=== PATIENT | male | born 1935 | race Two or more races ===

== ENCOUNTER 2022-10-20 10:54 | Inpatient (IN) | payer OTHER ==
[~2022-10-20] VITALS: Ht 177.8 cm; Wt 69.3 kg
[~2022-10-20 10:54] MED LIST: LOSA-69 PO; TAMS0.4C36 PO
[2022-10-21] VITALS (8 sets, daily range): BP systolic 118–135; BP diastolic 51–80
[2022-10-21] MEDS ORDERED: DOCUSATE SOD 100 MG CAP PO PRN (01:00)
[2022-10-21] MEDS ORDERED: ONDANSETRON HCL 4 MG/2 ML VIAL IV PRN (01:00)
[2022-10-21] MEDS ORDERED: ALBUTEROL SULF 2.5 MG/0.5ML(0.5%) NEB SOLN NEB PRN (01:00)
[2022-10-21] MEDS ORDERED: HYDROcodone-ACET 5/325MG TAB PO PRN (01:00)
[2022-10-21] MEDS ORDERED: IPRATROPIUM BROM 0.5 MG/2.5ML INH SOL NEB PRN (01:00)
[2022-10-21] MEDS ORDERED: MORPHINE SULFATE INJ 2 MG/ml SYRG IV PRN (01:00)
[2022-10-21] MEDS ORDERED: NITROGLYCERIN 0.4 MG SL TAB SL PRN (01:00)
[2022-10-21 01:27] LABS: Basophils # (auto) 0.1 10 ^3/uL (0-0.2); Basophils % (auto) 1.2 % (0.0-2.0); Eosinophils # (auto) 0 10 ^3/uL (0-0.8); Hematocrit 38.8 % (41.0-53.0); Hemoglobin 13.5 g/dL (13.5-17.5); Lymphocytes # (auto) 0.7 10 ^3/uL (0.4-5.4); Mean Corpuscular Hemoglobin 33.9 pg (28.0-32.0); Mean Corpuscular Hgb Conc. 34.9 g/dL (32.0-36.0); Mean Corpuscular Volume 97.1 fL (80.0-100.0); Monocytes # (auto) 0.5 10 ^3/uL (0-1.3); Monocytes % (auto) 4.3 % (0.0-12.0); Neutrophils # (auto) 10.9 10 ^3/uL (1.6-8.6); Neutrophils % (auto) 88.5 % (37.0-80.0); Red Blood Cells 3.99 10^6/uL (4.5-5.90); Red Cell Distribution Width 13.7 % (11.8-14.3); White Blood Cell 12.3 10^3/uL (4.4-10.8)
[2022-10-21] MEDS ORDERED: cefTRIAXone 1GM/50ML D5W 50 ML IV SCH (01:30)
[2022-10-21 01:45] LABS: BUN/Creatinine Ratio 19.3
[2022-10-21 01:46] LABS: Calcium 8.6 mg/dL (8.5-10.1)
[2022-10-21] MEDS ORDERED: AZITHROMYCIN 500MG/ 250ML 250 ML IV SCH (02:00)
[2022-10-21] MEDS: PANTOPRAZOLE 40 MG/10 ML VIAL INJ IV SCH (10:16)
[2022-10-21] MEDS: cefTRIAXone 1GM/50ML D5W 50 ML IV SCH (20:48)
[2022-10-21] MEDS: AZITHROMYCIN 500MG/ 250ML 250 ML IV SCH (21:56)
[2022-10-22] MEDS: ACETAMINOPHEN 325 MG TAB PO PRN (00:31)
[2022-10-22 05:00] VITALS: BP 112/56
[2022-10-22] MEDS ORDERED: PRAV20TA3 PO (08:26)
[2022-10-22] MEDS ORDERED: FIN5T PO (08:26)
[2022-10-22] MEDS ORDERED: FLUT1INH6 INH (08:26)
[2022-10-22 08:42] VITALS: BP 124/70
[2022-10-22] MEDS: PANTOPRAZOLE 40 MG/10 ML VIAL INJ IV SCH (10:45)
[2022-10-22 13:00] VITALS: BP 133/62
[2022-10-22 17:00] VITALS: BP 119/60
[2022-10-22] MEDS ORDERED: REMDESIVIR PER PHARMACY 0 ML IV SCH (18:00)
[2022-10-22] MEDS: ZINC SULFATE 220mg CAP or TAB PO SCH (18:45)
[2022-10-22] MEDS: DexAMETHasone SOD PHOS 10MG/1ML VIAL INJ IV SCH (18:45)
[2022-10-22] MEDS: CHOLECALCIFEROL (VITD3) 2,000 UNIT CAP/TAB PO SCH (18:45)
[2022-10-22] MEDS ORDERED: REMDESIVIR 200 MG in NS 210ml LOADING DOSE ADULT IV ONE (19:00)
[2022-10-22] MEDS: cefTRIAXone 1GM/50ML D5W 50 ML IV SCH (20:54)
[2022-10-22 22:00] VITALS: BP 120/63
[2022-10-22] MEDS: AZITHROMYCIN 500MG/ 250ML 250 ML IV SCH (22:35)
[2022-10-22] MEDS: LOSARTAN POTASSIUM 50 MG TAB PO SCH (22:35)
[2022-10-22] MEDS: ASCORBIC ACID 500 MG TAB PO SCH (22:36)
[2022-10-23] VITALS (9 sets, daily range): BP systolic 96–124; BP diastolic 55–74
[2022-10-23 07:19] LABS: Albumin 2.1 g/dL (3.4-5.0); BUN/Creatinine Ratio 30.8; Bilirubin, Total 0.8 mg/dL (0.2-1.0); Calcium 8.3 mg/dL (8.5-10.1); Potassium 4.5 mmol/L (3.5-5.1); Total Protein 5.6 g/dL (6.4-8.2)
[2022-10-23] MEDS: ASCORBIC ACID 500 MG TAB PO SCH ×2 (09:56→22:27)
[2022-10-23] MEDS: PANTOPRAZOLE 40 MG/10 ML VIAL INJ IV SCH (09:56)
[2022-10-23] MEDS: CHOLECALCIFEROL (VITD3) 2,000 UNIT CAP/TAB PO SCH (09:57)
[2022-10-23] MEDS: DexAMETHasone SOD PHOS 10MG/1ML VIAL INJ IV SCH (09:58)
[2022-10-23] MEDS: ZINC SULFATE 220mg CAP or TAB PO SCH (09:58)
[2022-10-23] MEDS: REMDESIVIR 200 MG in NS 210ml LOADING DOSE ADULT IV ONE ×2 (09:59→10:57)
[2022-10-23] MEDS: LOSARTAN POTASSIUM 50 MG TAB PO SCH ×2 (10:00→22:28)
[2022-10-23] MEDS: FINASTERIDE 5 MG TAB PO SCH (10:01)
[2022-10-23] MEDS: PRAVASTATIN SODIUM 20 MG TAB PO SCH (10:01)
[2022-10-23] MEDS: TAMSULOSIN HYDROCHLORIDE 0.4 MG CAP PO SCH (10:05)
[2022-10-23] MEDS ORDERED: ALBUTEROL SULF 2.5 MG/0.5ML(0.5%) NEB SOLN NEB PRN (12:00)
[2022-10-23] MEDS: guaiFENesin 200 MG/10 ML UD GT PRN (13:30)
[2022-10-23] MEDS ORDERED: REMDESIVIR 100mg 100 MG in SODIUM CHL 0.9% 230 ML IV SCH (15:00)
[2022-10-23] MEDS: SODIUM CHLORIDE 0.9% 1,000 ML IV SCH (15:30)
[2022-10-23] MEDS ORDERED: ALBUTEROL SULF HFA 90MCG INH 200DOSE IN PRN (16:15)
[2022-10-23 20:59] LABS: Urine Bacteria NONE SEEN /hpf (None Seen); Urine Blood Negative /uL (Negative); Urine Hyaline Cast FEW /lpf (0 - 2); Urine Mucus FEW (None Seen); Urine Specific Gravity 1.021 (1.001-1.035); Urine WBC <1 /hpf (0 - 3)
[2022-10-23] MEDS: cefTRIAXone 1GM/50ML D5W 50 ML IV SCH (21:05)
[2022-10-23] MEDS: AZITHROMYCIN 500MG/ 250ML 250 ML IV SCH (22:27)
[2022-10-24] MEDS: SODIUM CHLORIDE 0.9% 1,000 ML IV SCH (04:19)
[2022-10-24 05:24] VITALS: BP 129/54
[2022-10-24 08:03] LABS: Albumin 1.9 g/dL (3.4-5.0); BUN/Creatinine Ratio 37.2; Bilirubin, Total 0.4 mg/dL (0.2-1.0); Calcium 8.2 mg/dL (8.5-10.1); Potassium 3.9 mmol/L (3.5-5.1); Total Protein 5.9 g/dL (6.4-8.2)
[2022-10-24 08:37] LABS: Folate (Folic Acid) 15.29 ng/mL (5.38-24)
[2022-10-24 08:44] VITALS: BP 113/58
[2022-10-24] MEDS ORDERED: GASTROGRAFIN 120 ML SOL ONE (09:00)
[2022-10-24] MEDS ORDERED: EZ-GAS II GRANULES (RADIOLOGY USE) PO ONE (09:01)
[2022-10-24] MEDS ORDERED: EZ PAQUE SUSP 12OZ BTL ONE (09:01)
[2022-10-24] MEDS: CHOLECALCIFEROL (VITD3) 2,000 UNIT CAP/TAB PO SCH (10:57)
[2022-10-24] MEDS: PANTOPRAZOLE 40 MG/10 ML VIAL INJ IV SCH (10:57)
[2022-10-24] MEDS: ZINC SULFATE 220mg CAP or TAB PO SCH (10:58)
[2022-10-24] MEDS: FINASTERIDE 5 MG TAB PO SCH (10:58)
[2022-10-24] MEDS: TAMSULOSIN HYDROCHLORIDE 0.4 MG CAP PO SCH (10:58)
[2022-10-24] MEDS: LOSARTAN POTASSIUM 50 MG TAB PO SCH ×2 (10:58→21:09)
[2022-10-24] MEDS: DexAMETHasone SOD PHOS 10MG/1ML VIAL INJ IV SCH (10:59)
[2022-10-24] MEDS: PRAVASTATIN SODIUM 20 MG TAB PO SCH (10:59)
[2022-10-24] MEDS: ASCORBIC ACID 500 MG TAB PO SCH ×2 (10:59→21:08)
[2022-10-24 13:00] VITALS: BP 125/63
[2022-10-24] MEDS: REMDESIVIR 100mg 100 MG in SODIUM CHL 0.9% 230 ML IV SCH (15:14)
[2022-10-24 17:00] VITALS: BP 120/71
[2022-10-24 19:50] VITALS: BP 131/68
[2022-10-24] MEDS: cefTRIAXone 1GM/50ML D5W 50 ML IV SCH (21:09)
[2022-10-24] MEDS: AZITHROMYCIN 500MG/ 250ML 250 ML IV SCH (21:09)
[2022-10-24 22:00] VITALS: BP 131/68
[2022-10-25] MEDS: SODIUM CHLORIDE 0.9% 1,000 ML IV SCH ×2 (00:20→17:00)
[2022-10-25] MEDS: ACETAMINOPHEN 325 MG TAB PO PRN (01:22)
[2022-10-25 05:00] VITALS: BP 138/67
[2022-10-25 08:19] LABS: Basophils # (auto) 0 10 ^3/uL (0-0.2); Basophils % (auto) 0.1 % (0.0-2.0); Eosinophils # (auto) 0 10 ^3/uL (0-0.8); Hematocrit 34.8 % (41.0-53.0); Hemoglobin 12.1 g/dL (13.5-17.5); Lymphocytes # (auto) 0.8 10 ^3/uL (0.4-5.4); Lymphocytes % (auto) 5.5 % (10.0-50.0); Mean Corpuscular Hemoglobin 32.7 pg (28.0-32.0); Mean Corpuscular Hgb Conc. 34.7 g/dL (32.0-36.0); Mean Corpuscular Volume 94.2 fL (80.0-100.0); Monocytes # (auto) 0.7 10 ^3/uL (0-1.3); Monocytes % (auto) 4.9 % (0.0-12.0); Neutrophils # (auto) 12.4 10 ^3/uL (1.6-8.6); Neutrophils % (auto) 89.5 % (37.0-80.0); Red Cell Distribution Width 13.4 % (11.8-14.3); White Blood Cell 13.8 10^3/uL (4.4-10.8)
[2022-10-25 08:26] LABS: Bilirubin, Total 0.4 mg/dL (0.2-1.0); Calcium 8.3 mg/dL (8.5-10.1); Potassium 4.3 mmol/L (3.5-5.1); Total Protein 5.8 g/dL (6.4-8.2)
[2022-10-25 08:53] VITALS: BP 130/67
[2022-10-25] MEDS: LOSARTAN POTASSIUM 50 MG TAB PO SCH ×3 (10:00→22:14)
[2022-10-25] MEDS: ZINC SULFATE 220mg CAP or TAB PO SCH ×2 (10:00→10:19)
[2022-10-25] MEDS: PRAVASTATIN SODIUM 20 MG TAB PO SCH ×2 (10:00→10:19)
[2022-10-25] MEDS: ASCORBIC ACID 500 MG TAB PO SCH ×3 (10:00→22:14)
[2022-10-25] MEDS: DexAMETHasone SOD PHOS 10MG/1ML VIAL INJ IV SCH ×2 (10:00→10:21)
[2022-10-25] MEDS: FINASTERIDE 5 MG TAB PO SCH ×2 (10:00→10:18)
[2022-10-25] MEDS: PANTOPRAZOLE 40 MG/10 ML VIAL INJ IV SCH ×2 (10:00→10:17)
[2022-10-25] MEDS: TAMSULOSIN HYDROCHLORIDE 0.4 MG CAP PO SCH ×2 (10:00→10:19)
[2022-10-25] MEDS: CHOLECALCIFEROL (VITD3) 2,000 UNIT CAP/TAB PO SCH ×2 (10:00→10:19)
[2022-10-25] MEDS: guaiFENesin 200 MG/10 ML UD GT PRN (10:19)
[2022-10-25 13:00] VITALS: BP 141/85
[2022-10-25] MEDS: REMDESIVIR 100mg 100 MG in SODIUM CHL 0.9% 230 ML IV SCH (15:00)
[2022-10-25 17:19] VITALS: BP 149/74
[2022-10-25] MEDS ORDERED: guaiFENesin 200 MG/10 ML UD PO PRN (19:45)
[2022-10-25] MEDS: cefTRIAXone 1GM/50ML D5W 50 ML IV SCH (20:46)
[2022-10-25 22:00] VITALS: BP 126/70
[2022-10-25] MEDS: AZITHROMYCIN 500MG/ 250ML 250 ML IV SCH (22:13)
[2022-10-26 05:00] VITALS: BP 110/51
[2022-10-26 06:44] LABS: Albumin 1.9 g/dL (3.4-5.0); Calcium 8.2 mg/dL (8.5-10.1); Potassium 3.9 mmol/L (3.5-5.1)
[2022-10-26 06:49] LABS: BUN/Creatinine Ratio 36.8; Bilirubin, Total 0.5 mg/dL (0.2-1.0); Total Protein 5.4 g/dL (6.4-8.2)
[2022-10-26 09:00] VITALS: BP 115/53
[2022-10-26] MEDS: SODIUM CHLORIDE 0.9% 1,000 ML IV SCH (09:40)
[2022-10-26] MEDS: PANTOPRAZOLE 40 MG/10 ML VIAL INJ IV SCH (10:24)
[2022-10-26] MEDS: CHOLECALCIFEROL (VITD3) 2,000 UNIT CAP/TAB PO SCH (10:24)
[2022-10-26] MEDS: PRAVASTATIN SODIUM 20 MG TAB PO SCH (10:24)
[2022-10-26] MEDS: DexAMETHasone SOD PHOS 10MG/1ML VIAL INJ IV SCH (10:24)
[2022-10-26] MEDS: ZINC SULFATE 220mg CAP or TAB PO SCH (10:25)
[2022-10-26] MEDS: TAMSULOSIN HYDROCHLORIDE 0.4 MG CAP PO SCH (10:25)
[2022-10-26] MEDS: FINASTERIDE 5 MG TAB PO SCH (10:25)
[2022-10-26] MEDS: ASCORBIC ACID 500 MG TAB PO SCH (10:25)
[2022-10-26] MEDS: LOSARTAN POTASSIUM 50 MG TAB PO SCH (10:25)
[2022-10-26 13:00] VITALS: BP 115/57
[2022-10-26] MEDS ORDERED: ASCO500T11 PO (14:06)
[2022-10-26] MEDS ORDERED: METH4PAK PO (14:06)
[2022-10-26] MEDS ORDERED: CHOL1CAP47 PO (14:06)
[2022-10-26 15:06] VITALS: BP 115/57
[2022-10-26] MEDS: REMDESIVIR 100mg 100 MG in SODIUM CHL 0.9% 230 ML IV SCH (15:59)
[2022-10-26 16:27] VITALS: BP 122/65
[2022-10-26 18:00] VITALS: BP 115/53
== END 2022-10-26 19:41 | disposition home or self-care (01) | DRG 177 ==
LOC: UNDOADMIN 23:11 → TELE-WESTW 23:11 → INTOOBSV 10-21 00:59 → TELE-WESTW 10-21 00:59 → OBSVTOIN 10-21 09:36
PROVIDERS: ADMIT Internal Medicine; ATTEND Internal Medicine
PROC: XW033E5 Introduction of Remdesivir Anti-infective into Peripheral Vein, Percutaneous Approach, New Technology Group 5 (ICD-10-PCS; principal; 2022-10-22)
DX: U07.1 COVID-19 (principal); G92.8 Other toxic encephalopathy; J12.82 Pneumonia due to coronavirus disease 2019; I50.23 Acute on chronic systolic (congestive) heart failure; J96.01 Acute respiratory failure with hypoxia; I42.9 Cardiomyopathy, unspecified; J98.11 Atelectasis; I11.0 Hypertensive heart disease with heart failure; F17.200 Nicotine dependence, unspecified, uncomplicated; E78.5 Hyperlipidemia, unspecified; E11.9 Type 2 diabetes mellitus without complications; H91.90 Unspecified hearing loss, unspecified ear; R13.10 Dysphagia, unspecified; N40.0 Benign prostatic hyperplasia without lower urinary tract symptoms; Z78.9 Other specified health status
CPT/HCPCS: 36415; 36600; 70450; 71045; 80048; 80053; 81001; 82607; 82746; 82805; 84443; 85025; 87081; 87426; 92610; 93306; 95819; 97110; 97116; 97163; 97530; C9113; G0378; J0696; J1100